=== PATIENT | female | born 1935 | race Hispanic/Latino ===

== ENCOUNTER → 2018-01-07 | Outpatient (CLI) | payer OTHER, MEDICARE ==
[~2018-01-07] MED LIST: AMLO10TA6 PO; CALC-1034 PO; FENO145T37 PO; FERR325T22 PO; GLIP10TA9 PO; LEVO137T2 PO; METF-446 PO; OLOP2.5D OP; REGADENOSON 0.4 MG/5 ML PF SYG IVP SCH; ROSU5TAB PO; VALS1TAB79 PO
== END | disposition home or self-care (01) ==
LOC: SHCH 09:03
PROVIDERS: ATTEND Internal Medicine Cardiovascular Disease
DX: I20.8 Other forms of angina pectoris (principal)
CPT/HCPCS: 78452; 93017; 96374; A9500 ×2; J2785

== ENCOUNTER → 2018-01-14 | Outpatient (CLI) | payer OTHER, MEDICARE ==
[~2018-01-14] MED LIST changes: +ALEN70TA47 PO; +ISOS30TA6 PO; +LOSA50TA25 PO; +METF-444 PO; -REGADENOSON 0.4 MG/5 ML PF SYG IVP SCH; +VITAMIN D PO
== END | disposition home or self-care (01) ==
LOC: SHCH 15:04
PROVIDERS: ATTEND Internal Medicine Cardiovascular Disease
DX: I10 Essential (primary) hypertension (principal)
CPT/HCPCS: 93306

== ENCOUNTER 2018-02-06 06:50 | Day surgery (SDC) | payer OTHER, MEDICARE ==
[2018-02-04 13:44] VITALS: BP 180/70
[2018-02-04 13:51] LABS: BASOPHILS % (AUTO) 0.7 % (0.0-5.0); EOSINOPHILS % (AUTO) 5.2 % (0.0-8.0); HEMATOCRIT 30.8 % (36-48); LYMPHOCYTES % (AUTO) 16.2 % (21.0-51.0); MEAN CORPUSCULAR HGB CONC 33.8 g/dL (32.0-36.0); MEAN CORPUSCULAR VOLUME 94.7 fL (79-99); MONOCYTES % (AUTO) 7.6 % (3.0-13.0); NEUTROPHILS % (AUTO) 70.3 % (40.0-77.0); PLATELET COUNT (AUTO) 357 K/uL (130-400); RED BLOOD CELL COUNT(AUTO) 3.25 MIL/uL (4.00-5.50); WHITE BLOOD COUNT (AUTO) 5.8 K/uL (4.8-10.8)
[2018-02-04 13:55] LABS: APPEARANCE,URINE Clear (CLEAR); BILIRUBIN,URINE Negative (NEGATIVE); COLOR,URINE Yellow (YELLOW); GLUCOSE, URINE (UA) Negative (NEGATIVE); KETONES,URINE Negative (NEGATIVE); LEUKOCYTE ESTERASE ,URINE Negative (NEGATIVE); NITRATE,URINE Negative (NEGATIVE); OCCULT BLOOD,URINE Negative (NEGATIVE); PROTEIN,URINE POS 2+ (NEGATIVE); UROBILINOGEN,URINE 0.2 mg/dL (0.2-1.0)
[2018-02-04 13:57] LABS: CREATININE 1.1 mg/dL (0.5-1.5); POTASSIUM 5.1 mmol/L (3.5-5.1)
[2018-02-04 14:12] LABS: BACTERIA,URINE Rare /HPF (None Seen); RBC,URINE 0-1 /HPF (0-1); SQUAMOUS EPITHELIAL CELL,UR Rare /HPF (0-2); WBC,URINE 0-1 /HPF (0-1)
[2018-02-04 14:15] LABS: INR 1.06 (0.85-1.15); PARTIAL THROMBOPLASTIN TIME 26.6 SEC (26.3-35.5); PROTHROMBIN TIME 11.1 SEC (9.6-11.6)
[2018-02-06] VITALS (12 sets, daily range): BP systolic 142–183; BP diastolic 47–78
[~2018-02-06] VITALS: Ht 154.9 cm; Wt 58.7 kg
[~2018-02-06 06:50] MED LIST changes: -AMLO10TA6 PO; -CALC-1034 PO; -LEVO137T2 PO; -METF-446 PO; -OLOP2.5D OP; -VALS1TAB79 PO
[2018-02-06] MEDS ORDERED: SODIUM CHLORIDE 0.9% 1000ML 1,000 ML IV ONE (07:28)
[2018-02-06] MEDS ORDERED: HEPARIN SODIUM 1000UNIT/ML 10ML VIAL ONE (08:43)
[2018-02-06] MEDS ORDERED: IOHEXOL 350 MG/ML 100ML INFUS..BTL IV ONE (08:44)
[2018-02-06] MEDS ORDERED: IOHEXOL-350 50ML VIAL IV ONE (08:44)
[2018-02-06] MEDS ORDERED: LIDOCAINE HCL 2% 20ML ONE (08:44)
[2018-02-06] MEDS ORDERED: LABETALOL HCL 5 MG/ML 20ML VIAL IV ONE (10:41)
[2018-02-06] MEDS ORDERED: NITROGLYCERIN 4.1 GM SPRAY TL ONE (10:42)
[2018-02-06] MEDS ORDERED: DEXTROSE 50%-WATER 50 ML DISP.SYRIN IV PRN (11:15)
[2018-02-06] MEDS ORDERED: GLUCAGON 1MG KIT 1 MG ML IM PRN (11:15)
[2018-02-06] MEDS ORDERED: INSULIN HUMULIN R 100 UNIT/ML 3ML SQ SCH (11:30)
[2018-02-06] MEDS ORDERED: METOPROLOL TARTRATE 25 MG TAB PO SCH (13:34)
== END 2018-02-06 17:47 | disposition home or self-care (01) ==
LOC: DAH 06:50
PROVIDERS: ATTEND Internal Medicine Cardiovascular Disease
DX: I25.118 Atherosclerotic heart disease of native coronary artery with other forms of angina pectoris (principal); I11.9 Hypertensive heart disease without heart failure; E11.9 Type 2 diabetes mellitus without complications; E78.5 Hyperlipidemia, unspecified; E03.9 Hypothyroidism, unspecified; Z90.710 Acquired absence of both cervix and uterus; Z90.49 Acquired absence of other specified parts of digestive tract; Z98.890 Other specified postprocedural states; Z79.899 Other long term (current) drug therapy; Z79.84 Long term (current) use of oral hypoglycemic drugs; I45.10 Unspecified right bundle-branch block
CPT/HCPCS: 36415; 71045; 80048; 81001; 82948 ×3; 85025; 85610; 85730; 93005; 93458; A4606; C1769 ×2; C1894; J1644 ×2; J3490 ×2; J7030; Q9965; Q9967 ×2

== ENCOUNTER → 2018-03-31 | Outpatient (CLI) | payer OTHER, MEDICARE ==
[~2018-03-31] MED LIST changes: -LOSA50TA25 PO
== END | disposition home or self-care (01) ==
LOC: RAH 09:32
PROVIDERS: ATTEND Internal Medicine Gastroenterology
DX: K21.9 Gastro-esophageal reflux disease without esophagitis (principal); R12 Heartburn; R42 Dizziness and giddiness
CPT/HCPCS: 74240

== ENCOUNTER → 2020-09-21 | Outpatient (CLI) | payer OTHER, MEDICARE ==
[~2020-09-21] MED LIST changes: -ALEN70TA47 PO; +ALEN70TA80 PO; +FENO145T26 PO; -FENO145T37 PO; -ISOS30TA6 PO; +ISOS30TA92 PO
== END | disposition home or self-care (01) ==
LOC: SHCH 13:18
PROVIDERS: ATTEND Internal Medicine Cardiovascular Disease
DX: R00.1 Bradycardia, unspecified (principal)
CPT/HCPCS: 93306; 93356

== ENCOUNTER → 2020-09-23 | Outpatient (CLI) | payer OTHER, MEDICARE ==
[~2020-09-23] MED LIST changes: +REGADENOSON 0.4 MG/5 ML PF SYG IVP SCH
== END | disposition home or self-care (01) ==
LOC: SHCH 07:46
PROVIDERS: ATTEND Internal Medicine Cardiovascular Disease
DX: R00.1 Bradycardia, unspecified (principal); R06.02 Shortness of breath
CPT/HCPCS: 78452; 93017; 96374; A9500 ×2; J2785

== ENCOUNTER → 2023-03-08 | Outpatient (CLI) | payer OTHER, MEDICARE ==
[~2023-03-08] MED LIST changes: -REGADENOSON 0.4 MG/5 ML PF SYG IVP SCH
[2023-03-08 15:28] LABS: CREATININE 1.8 mg/dL (0.5-1.5); MAGNESIUM 2.7 mg/dL (1.80-2.40); POTASSIUM 3.4 mmol/L (3.5-5.1)
== END | disposition home or self-care (01) ==
LOC: LAB 13:09
PROVIDERS: ATTEND Physician Assistant
DX: I11.0 Hypertensive heart disease with heart failure (principal); I50.22 Chronic systolic (congestive) heart failure; E78.5 Hyperlipidemia, unspecified
CPT/HCPCS: 36415; 80048; 83735; 83880

== ENCOUNTER → 2023-05-28 | Outpatient (CLI) | payer OTHER, MEDICARE ==
[~2023-05-28] MED LIST changes: +DIATR MEGLU/DIATRIZOATE SODIUM 30 ML BOTTLE ONE
== END | disposition home or self-care (01) ==
LOC: RAH 10:18
PROVIDERS: ATTEND Internal Medicine Gastroenterology
DX: M47.815 Spondylosis without myelopathy or radiculopathy, thoracolumbar region (principal); Z93.1 Gastrostomy status; Z90.49 Acquired absence of other specified parts of digestive tract
CPT/HCPCS: 74018; Q9963

== ENCOUNTER → 2023-07-22 | Outpatient (CLI) | payer OTHER, MEDICARE | END | disposition home or self-care (01) | LOC: RAH 08:40 | PROVIDERS: ATTEND Internal Medicine Gastroenterology | DX: K94.20 Gastrostomy complication, unspecified (principal); M47.815 Spondylosis without myelopathy or radiculopathy, thoracolumbar region; Z98.890 Other specified postprocedural states | CPT/HCPCS: 74018; Q9963 ==

== ENCOUNTER → 2023-09-19 | Outpatient (CLI) | payer OTHER, MEDICARE | END | disposition home or self-care (01) | LOC: RAH 10:49 | PROVIDERS: ATTEND Internal Medicine Gastroenterology | DX: K94.20 Gastrostomy complication, unspecified (principal); M47.815 Spondylosis without myelopathy or radiculopathy, thoracolumbar region | CPT/HCPCS: 74018; Q9963 ==

== ENCOUNTER → 2024-05-20 | Outpatient (CLI) | payer OTHER, MEDICARE ==
[~2024-05-20] MED LIST changes: +GLIP10TA16 PO; -GLIP10TA9 PO
--- NOTE | 2024-05-20 16:25 | HMCIMG ---
ABD 1VW REASON: GASTROSTOMY STATUS, to confirm PEG tube placement FINDINGS: Single image of the abdomen was obtained. Bowel gas pattern is normal. Bones and soft tissues appear unremarkable. There are no abnormal calcifications. There is no evidence of foreign body. There is a gastrostomy tube with retaining balloon present in the stomach. Contrast outlines the gastric cardia and the duodenal C-loop without evidence of leak. IMPRESSION: 1. PEG tube retaining balloon present within the stomach.
== END | disposition home or self-care (01) ==
LOC: RAH 10:30
PROVIDERS: ATTEND Internal Medicine Gastroenterology
DX: K59.00 Constipation, unspecified (principal); Z93.1 Gastrostomy status
CPT/HCPCS: 74018; Q9963